=== PATIENT | female | born 1960 | race Caucasian/White ===

== ENCOUNTER 2019-05-04 14:22 | Emergency (ER) | payer OTHER ==
[~2019-05-04] VITALS: Ht 162.6 cm; Wt 81.6 kg
[2019-05-04 14:58] LABS: Basophils # (auto) 0.1 uL; Basophils % (auto) 0.8 % (0.0-2.0); Eosinophils # (auto) 0.4 uL; Eosinophils % (auto) 3.4 % (0.0-7.0); Hematocrit 42.3 % (36.0-46.0); Hemoglobin 14.5 g/dL (12.2-16.2); Lymphocytes # (auto) 4.7 uL; Lymphocytes % (auto) 36.5 % (10.0-50.0); Mean Corpuscular Hemoglobin 32.1 pg (28.0-32.0); Mean Corpuscular Hgb Conc. 34.2 g/dL (32.0-36.0); Mean Corpuscular Volume 93.7 fL (80.0-100.0); Monocytes # (auto) 1.1 uL; Neutrophils # (auto) 6.4 uL; Neutrophils % (auto) 50.3 % (37.0-80.0); Nucleated Red Blood Cells % 0.1 %; Platelet Count (auto) 358 10^3/uL (140-450); Red Blood Cells 4.51 10^6/uL (4.0-5.20); Red Cell Distribution Width 12.9 % (11.8-14.3); White Blood Cell 12.8 10^3/uL (4.4-10.8)
[2019-05-04 15:22] LABS: Urine Bacteria NONE SEEN /hpf (None Seen); Urine Blood Negative /uL (Negative); Urine Specific Gravity 1.006 (1.001-1.035); Urine WBC 9 /hpf (0 - 5)
[2019-05-04 15:23] LABS: Albumin 3.6 g/dL (3.4-5.0); Anion Gap 8 (5-15); Blood Urea Nitrogen 18 mg/dL (7-18); Calcium 9.6 mg/dL (8.5-10.1); Carbon Dioxide 25 mmol/L (21-32); Chloride 106 mmol/L (98-107); Glucose 100 mg/dL (74-106); Magnesium 2.7 mg/dL (1.6-2.6); Potassium 3.9 mmol/L (3.5-5.1); Sodium 139 mmol/L (136-145)
[2019-05-04 15:29] LABS: Alanine Aminotransferase 21 U/L (13-56); Alkaline Phosphatase 99 U/L (45-117); Aspartate Aminotransferase 19 U/L (15-37); BUN/Creatinine Ratio 18.2; Bilirubin, Total 0.3 mg/dL (0.2-1.0); GFR African American 74 mL/min; GFR Non-African American 61 mL/min; Total Protein 7.9 g/dL (6.4-8.2)
[2019-05-04 17:20] LABS: INR 0.93 (0.9-1.15); Partial Thromboplastin Time 24.6 sec (23.64-32.05)
[2019-05-04] MEDS ORDERED: IOHEXOL 350 MG/ML 100ML IJ ONE (17:57)
[2019-05-04] MEDS ORDERED: ACETAMINOPHEN 325 MG TAB PO ONE (20:30)
[2019-05-04] MEDS ORDERED: PANTOPRAZOLE 40 MG TAB PO ONE (20:30)
[2019-05-04 21:30] VITALS: BP 135/81
== END 2019-05-04 21:52 | disposition short-term general hospital (02) ==
LOC: EDBD 14:22 → ER 14:26
DX: R07.89 Other chest pain (principal); I10 Essential (primary) hypertension; Z86.73 Personal history of transient ischemic attack (TIA), and cerebral infarction without residual deficits; Z90.710 Acquired absence of both cervix and uterus; Z88.1 Allergy status to other antibiotic agents; Z88.8 Allergy status to other drugs, medicaments and biological substances
CPT/HCPCS: 36415; 71045; 71260; 80053; 81001; 83735; 83880; 84443; 84484; 85025; 85379; 85610; 85730; 93005; 94761; 99291; Q9967

== ENCOUNTER 2022-02-02 17:53 | Emergency (ER) | payer OTHER ==
[~2022-02-02] VITALS: Ht 167.6 cm; Wt 81.6 kg
[2022-02-02 19:11] LABS: Basophils # (auto) 0.2 10 ^3/uL (0-0.2); Basophils % (auto) 1.1 % (0.0-2.0); Eosinophils # (auto) 0.4 10 ^3/uL (0-0.8); Hematocrit 38.6 % (36.0-46.0); Lymphocytes # (auto) 3.6 10 ^3/uL (0.4-5.4); Lymphocytes % (auto) 25.6 % (10.0-50.0); Mean Corpuscular Hemoglobin 31.7 pg (28.0-32.0); Mean Corpuscular Hgb Conc. 33.8 g/dL (32.0-36.0); Monocytes # (auto) 1.2 10 ^3/uL (0-1.3); Monocytes % (auto) 8.3 % (0.0-12.0); Neutrophils # (auto) 8.8 10 ^3/uL (1.6-8.6); Nucleated Red Blood Cells % 0.1 %; Red Cell Distribution Width 13.4 % (11.8-14.3); White Blood Cell 14.2 10^3/uL (4.4-10.8)
[2022-02-02 19:30] LABS: Albumin 3.3 g/dL (3.4-5.0); Calcium 8.9 mg/dL (8.5-10.1); Potassium 3.8 mmol/L (3.5-5.1)
[2022-02-02 19:34] LABS: BUN/Creatinine Ratio 17.1; Bilirubin, Total 0.3 mg/dL (0.2-1.0); Total Protein 6.9 g/dL (6.4-8.2)
[2022-02-02 20:50] VITALS: BP 145/79
[2022-02-02 20:56] LABS: Urine Bacteria NONE SEEN /hpf (None Seen); Urine Blood Negative /uL (Negative); Urine Mucus FEW (None Seen); Urine WBC 1 /hpf (0 - 5)
== END 2022-02-02 20:50 | disposition home or self-care (01) ==
LOC: EDBD 17:53 → ER 17:53
DX: R55 Syncope and collapse (principal); J45.909 Unspecified asthma, uncomplicated; K21.9 Gastro-esophageal reflux disease without esophagitis; I10 Essential (primary) hypertension; Z90.710 Acquired absence of both cervix and uterus; Z86.73 Personal history of transient ischemic attack (TIA), and cerebral infarction without residual deficits; Z88.6 Allergy status to analgesic agent
CPT/HCPCS: 36415; 80053; 81001; 84484; 85025; 93005; 99285; J7030

== ENCOUNTER → 2022-11-18 | Emergency (ER) | payer OTHER ==
[~2022-11-18] VITALS: Ht 165.1 cm; Wt 68.0 kg
[2022-11-18 00:20] LABS: Basophils # (auto) 0.1 10 ^3/uL (0-0.2); Basophils % (auto) 0.8 % (0.0-2.0); Eosinophils # (auto) 0.5 10 ^3/uL (0-0.8); Eosinophils % (auto) 4.4 % (0.0-7.0); Hematocrit 40.4 % (36.0-46.0); Hemoglobin 13.6 g/dL (12.2-16.2); Mean Corpuscular Hemoglobin 31.2 pg (28.0-32.0); Mean Corpuscular Hgb Conc. 33.5 g/dL (32.0-36.0); Monocytes % (auto) 8.5 % (0.0-12.0); Neutrophils # (auto) 6.5 10 ^3/uL (1.6-8.6); Neutrophils % (auto) 53.3 % (37.0-80.0); Nucleated Red Blood Cells % 0.1 %; Red Blood Cells 4.35 10^6/uL (4.0-5.20); Red Cell Distribution Width 13.2 % (11.8-14.3); White Blood Cell 12.2 10^3/uL (4.4-10.8)
[2022-11-18 00:37] LABS: Albumin 3.5 g/dL (3.4-5.0); BUN/Creatinine Ratio 22.7; Calcium 9.5 mg/dL (8.5-10.1); Potassium 4.3 mmol/L (3.5-5.1)
[2022-11-18 00:40] LABS: Bilirubin, Total 0.3 mg/dL (0.2-1.0); Total Protein 7.7 g/dL (6.4-8.2)
[2022-11-18 02:11] LABS: Urine Bacteria FEW /hpf (None Seen); Urine Blood Negative /uL (Negative); Urine Specific Gravity 1.006 (1.001-1.035); Urine WBC 26 /hpf (0 - 5); Urine WBC Clumps PRESENT /hpf (None Seen)
[2022-11-18 03:00] VITALS: BP 131/71
== END | disposition home or self-care (01) ==
LOC: EDUNIT# 11-17 23:56 → ER 00:04 → EDBD 00:04
DX: R07.89 Other chest pain (principal); I10 Essential (primary) hypertension; J45.909 Unspecified asthma, uncomplicated; K21.9 Gastro-esophageal reflux disease without esophagitis; Z90.710 Acquired absence of both cervix and uterus; Z86.73 Personal history of transient ischemic attack (TIA), and cerebral infarction without residual deficits; Z88.1 Allergy status to other antibiotic agents; Z88.6 Allergy status to analgesic agent; Z88.8 Allergy status to other drugs, medicaments and biological substances
CPT/HCPCS: 36415; 71045; 80053; 81001; 84484; 85025; 93005

== ENCOUNTER 2023-10-15 14:50 | Emergency (ER) | payer OTHER ==
[~2023-10-15] VITALS: Ht 167.6 cm; Wt 81.8 kg
[2023-10-15] MEDS ORDERED: SODIUM CHLORIDE 0.9% 1,000 ML IV ONE (15:15)
[2023-10-15] MEDS ORDERED: NITROGLYCERIN 0.4 MG SL TAB SL ONE (15:30)
[2023-10-15] MEDS ORDERED: ASPirin 325 MG TAB PO ONE (15:30)
[2023-10-15 16:04] LABS: Basophils # (auto) 0.1 10 ^3/uL (0-0.2); Basophils % (auto) 0.8 % (0.0-2.0); Eosinophils # (auto) 0.5 10 ^3/uL (0-0.8); Eosinophils % (auto) 5.4 % (0.0-7.0); Hematocrit 40.2 % (36.0-46.0); Hemoglobin 13.6 g/dL (12.2-16.2); Lymphocytes % (auto) 30.3 % (10.0-50.0); Mean Corpuscular Hemoglobin 31.7 pg (28.0-32.0); Mean Corpuscular Hgb Conc. 33.9 g/dL (32.0-36.0); Mean Corpuscular Volume 93.8 fL (80.0-100.0); Monocytes % (auto) 9.8 % (0.0-12.0); Neutrophils # (auto) 5.3 10 ^3/uL (1.6-8.6); Neutrophils % (auto) 53.7 % (37.0-80.0); Red Blood Cells 4.29 10^6/uL (4.0-5.20); Red Cell Distribution Width 12.6 % (11.8-14.3); White Blood Cell 9.9 10^3/uL (4.4-10.8)
[2023-10-15 16:20] LABS: Alanine Aminotransferase 16 U/L (7-40); Albumin 4.3 g/dL (3.2-4.8); Alkaline Phosphatase 92 U/L (46-116); Anion Gap 11 (5-15); Aspartate Aminotransferase 17 U/L (13-40); BUN/Creatinine Ratio 22.4 (10.0-20.0); Bilirubin, Total 0.3 mg/dL (0.2-1.0); Blood Urea Nitrogen 17 mg/dL (9-23); Calcium 9.5 mg/dL (8.7-10.4); Carbon Dioxide 24 mmol/L (20-30); Chloride 103 mmol/L (98-107); Glucose 103 mg/dL (74-106); Potassium 3.8 mmol/L (3.5-5.1); Sodium 138 mmol/L (136-145)
[2023-10-15 16:43] LABS: Urine Bacteria NONE SEEN /hpf (None Seen); Urine Blood Negative /uL (Negative); Urine Clarity Clear (Clear); Urine Color Colorless (Yellow); Urine Protein, UAD Negative (Negative); Urine Specific Gravity 1.016 (1.001-1.035); Urine Urobilinogen Normal (Negative); Urine WBC 5 /hpf (0 - 5); Urine pH 7.5 (5.0-8.0)
[2023-10-15 17:00] VITALS: TEMP 97.8
[2023-10-15] MEDS ORDERED: cefTRIAXone 1GM/50ML D5W 50 ML IV ONE (17:15)
[2023-10-15] MEDS ORDERED: IOHEXOL 350 MG/ML 100ML IJ ONE (17:19)
[2023-10-15] MEDS ORDERED: NITR-87 PO (17:37)
[2023-10-15 18:00] VITALS: BP 135/75; PULSE 73; RESP 15; O2SAT 97
== END 2023-10-15 19:40 | disposition home or self-care (01) ==
LOC: ER 14:50 → EDBD 14:50 → ER 19:40
DX: R07.89 Other chest pain (principal); N39.0 Urinary tract infection, site not specified; I10 Essential (primary) hypertension; E78.5 Hyperlipidemia, unspecified; K21.9 Gastro-esophageal reflux disease without esophagitis; J45.909 Unspecified asthma, uncomplicated; Z86.73 Personal history of transient ischemic attack (TIA), and cerebral infarction without residual deficits; Z90.49 Acquired absence of other specified parts of digestive tract; Z90.710 Acquired absence of both cervix and uterus; Z88.1 Allergy status to other antibiotic agents; Z88.8 Allergy status to other drugs, medicaments and biological substances
CPT/HCPCS: 36415; 71045; 71275; 80053; 81001; 84443; 84484; 85025; 85379; 93005; 96361; 96365; 99285; J0696; Q9967

== ENCOUNTER 2024-08-28 12:06 | Emergency (ER) | payer OTHER ==
[~2024-08-28] VITALS: Ht 162.6 cm; Wt 70.0 kg
[~2024-08-28 12:06] MED LIST: NITR-87 PO
--- NOTE | 2024-08-28 12:16 | ED.PDOC ---
HPI (NEURO) HPI Comments HPI: Poor Historian. 64-year-old female brought in by ambulance for a near syncopal episode. Patient was standing and she felt very lightheaded so she sat down and almost blacked out. She has associated mild headache. She started taking her Eliquis today. Denies any fall or trauma or injury. Denies any focal neurological deficits. No other associated symptoms. Vitals on scene: respiratory rate of 18, SpO2 of 99%RA, pulse rate of 78, blood pressure of 168/88, and a blood glucose of 99 Vitals on arrival: respiratory rate of 18, SpO2 of 99%RA, pulse rate of 79, blood pressure of 150/73 PMHx: HTN, TIA, LLE DVT, sciatica PSHx: denies REVIEW OF SYSTEMS: CONSTITUTIONAL: Denies acute: fever, diaphoresis, chills, generalized weakness. HEAD: Denies acute: photophobia Eyes: Denies acute: Double vision, vision loss, eye pain, eye discharge. EARS: Denies acute: tinnitus, hearing loss, ear discharge, ear pain, THROAT: Denies acute: sore throat, swelling, difficulty swallowing , pain with swallowing, change in voice. NECK: Denies acute: neck pain, neck swelling, stiff neck. HEART: Denies acute : chest pain, palpitations, LUNGS: Denies acute: SOB, wheezing, cough, hemoptysis ABDOMEN: Denies acute: abdominal pain, Nausea, Vomiting, diarrhea, melena , hematemesis, hematochezia SKIN: Denies acute: rash, redness, lesions, itchiness. EXTREMITIES: Denies acute: calf pain, numbness, tingling, weakness, denies pain in extremity. Denies acute: Low back pain. Neuro: Denies acute: focal neurological deficit, motor or sensory focal neurological deficit, tremors, seizure like activity, confusion, change in mental status, loss of bowel or bladder function, cauda equina like symptoms. : Denies acute: dysuria, hematuria, flank pain, increase in urinary frequency. PSYCH: Denies acute: hallucination, suicidal ideation, homicidal ideation. FEMALE: Denies acute: abnormal vaginal bleeding, foul odor, unusual discharge. PHYSICAL EXAM: General: no acute distress, awake and alert. Head: normocephalic, atraumatic. Neck: supple, trachea is midline, no swelling. Throat: Normal phonation. Eyes:, no erythema, no purulent discharge, no proptosis, no icterus. Heart: regular rate, regular rhythm, no significant murmur appreciated. Lungs: no apparent respiratory distress, Able to speak in full sentences. No wheezing, no rhonchi, no crackles. No stridors Clear to auscultation bilaterally. Abdomen: non tender to palpation, non distended, soft, no guarding, no rebound, + bowel sounds. Neuro: Awake, Alert, oriented to name, self, situation, follows commands GCS=15. Speech is normal. Skin: no petechia, no purpura, no cyanosis, non-pale, not jaundice. Lower extremities: --no - Pitting edema no deformity, no focal swelling, no calf TTP. Makes eye contact. moves all four extremities. Face: no apparent facial droop. Ambulating in the ED independently. PERRLA, EOM-I CN 2-12 are grossly intact, No nystagmus. No nuchal rigidity, Kernig's sign, Brudzinski's sign, no meningeal signs. Time Seen by MD: 12:00 Primary Care Provider: PERRY Reviewed Notes: Nurses Notes, [employer] Notes, Allergies Information Source: Patient, Emergency Med Personnel Was a procedure done? Was a procedure done?: No Differential Diagnosis (SZ) Seizure: N/A General Weakness: Anemia, CVA, Dehydration, Dysrhythmia, Electrolyte imbalance, Encephalopathy, Guillain-[place], Hypoglycemia, Hypotension, Hypovolemia, Labyrinthitis, Meniere's disease, Myasthenia gravis, Myocardial infarction, Pulmonary embolus, Renal failure, TIA, VBI, Vertigo: central, Vertigo: peripheral, Vestibular neuronitis Headache: Cluster, Migraine, Epidural Hemorrhage, Intracerebral Hemorrhage, Subarachnoid Hemorrhage, Subdural Hemorrhage, Mass Lesion, Meningitis, Post-Traumatic, Sinusitis X-Ray, Labs, Meds, VS Vital Signs Date Time Temp Pulse Resp B/P (MAP) Pulse Ox O2 Delivery O2 Flow Rate FiO2 08/28/24 18:00 89 16 132/69 (90) 94 08/28/24 16:00 80 16 138/65 (89) 94 08/28/24 14:00 85 16 142/60 (87) 94 08/28/24 13:00 72 16 94 Room Air* 0 21 08/28/24 12:38 98.2 79 18 150/73 (98) 99 08/28/24 12:30 98.2 72 16 144/66 (92) 94 98.2 08/28/24 12:27 80 Lab Test 08/28/24 16:11 08/28/24 13:58 08/28/24 13:05 08/28/24 12:43 Range/Units Troponin I High Sensitivity < 3 L < 3 L < 3 L </=34 ng/L White Blood Count 15.5 H 4.4-10.8 10^3/uL Red Blood Count 4.02 4.0-5.20 10^6/uL Hemoglobin 13.5 12.2-16.2 g/dL Hematocrit 39.8 36.0-46.0 % Mean Corpuscular Volume 98.9 80.0-100.0 fL Mean Corpuscular Hemoglobin 33.5 H 28.0-32.0 pg Mean Corpuscular Hemoglobin Concent 33.8 32.0-36.0 g/dL Red Cell Distribution Width 12.9 11.8-14.3 % Platelet Count 381 140-450 10^3/uL Mean Platelet Volume 7.4 6.9-10.8 fL Neutrophils (%) (Auto) 68.9 37.0-80.0 % Lymphocytes (%) (Auto) 22.7 10.0-50.0 % Monocytes (%) (Auto) 7.5 0.0-12.0 % Eosinophils (%) (Auto) 0.5 0.0-7.0 % Basophils (%) (Auto) 0.4 0.0-2.0 % Neutrophils # (Auto) 10.7 H 1.6-8.6 10 ^3/uL Lymphocytes # (Auto) 3.5 0.4-5.4 10 ^3/uL Monocytes # (Auto) 1.2 0-1.3 10 ^3/uL Eosinophils # (Auto) 0.1 0-0.8 10 ^3/uL Basophils # (Auto) 0.1 0-0.2 10 ^3/uL Nucleated Red Blood Cells 0.0 % Sodium Level 140 136-145 mmol/L Potassium Level 4.0 3.5-5.1 mmol/L Chloride Level 105 98-107 mmol/L Carbon Dioxide Level 27 20-31 mmol/L Anion Gap 8 5-15 Blood Urea Nitrogen 15 9-23 mg/dL Creatinine 0.83 0.550-1.02 mg/dL Glomerular Filtration Rate Calc 79 >90 mL/min BUN/Creatinine Ratio 18.1 10.0-20.0 Serum Glucose 94 74-106 mg/dL Lactic Acid Level 0.9 0.4-2.0 mmol/L Calcium Level 10.3 8.7-10.4 mg/dL Magnesium Level 2.4 1.6-2.6 mg/dL Total Bilirubin 0.5 0.2-1.0 mg/dL Aspartate Amino Transferase (AST) 12 L 13-40 U/L Alanine Aminotransferase (ALT) 28 7-40 U/L Alkaline Phosphatase 67 46-116 U/L Total Protein 7.1 5.7-8.2 g/dL Albumin 4.4 3.2-4.8 g/dL Urine Color Colorless Yellow Urine Clarity Clear Clear Urine pH 5.0 5.0-9.0 Urine Specific [place] 1.004 1.001-1.035 Urine Protein Negative Negative Urine Ketones Negative Negative Urine Blood Negative Negative /uL Urine Nitrite Negative Negative Urine Bilirubin Negative Negative Urine Urobilinogen Normal Negative mg/dL Urine Leukocyte Esterase Negative Negative /uL Urine RBC 1 0 - 4 /hpf Urine WBC <1 0 - 5 /hpf Urine Squamous Epithelial Cells Few <5 /hpf Urine Bacteria Few H None Seen /hpf Urine Glucose Normal Normal mg/dL Current Medications Medications (Trade) Dose Ordered Sig/Lucinda Route Start Time Stop Time Status Last Admin Sodium Chloride 1,000 ml @ 1,000 mls/hr Q1H ONCE IV 08/28/24 19:00 08/28/24 19:59 DC 08/28/24 19:00 [place] [address] Ph: [phone] DIAGNOSTIC IMAGING Diagnostic Imaging Report : [id number] Signed PATIENT: LORETTA HERNANDEZ ACCT: [id number] UNIT: [id number] : 1960 LOC: ER ROOM / BED: / AGE / SEX: 64 / F ADM STATUS: REG ER SERVICE 1212 ORDERING PHYSICIAN: BELEN GLASGOW DO PROCEDURE(s): HWOCT - HEAD WITHOUT CONTRAST REASON: near syncope ORDER NUMBER(s): [id number], ACCESSION NUMBER(s): [id number] EXAM: CT HEAD WITHOUT CONTRAST HISTORY: near syncope COMPARISON: None TECHNIQUE: Axial images of the head were obtained and reformatted in coronal and sagittal planes. All CT scans at this medical facility are performed using dose modulation techniques as appropriate to a performed exam including the following: Automated exposure control was utilized; adjustment of the MA and/or KV according to patient size; and use of iterative reconstruction technique. CT Dose: CTDI volume is 55.62 mGy. Dose-length product is 1096.05 mGy*cm FINDINGS: There is no evidence of acute intracranial hemorrhage, mass, mass effect midline shift. There is no hydrocephalus or extra-axial fluid collection. Mckinnon-white matter differentiation is maintained.. The visualized paranasal sinuses and mastoid air cells are clear. The calvarium is intact. IMPRESSION: 1. No acute intracranial process. HS:Y ATED BY: IFEANYI GRAVES MD DICTATED DATE/TIME: 08/28/241319 SIGNED BY: IFEANYI GRAVES MD SIGNED DATE/TIME: 08/28/241319 CC: [place] [id number] Ph: [phone] DIAGNOSTIC IMAGING Diagnostic Imaging Report : [id number] Signed PATIENT: LORETTA HERNANDEZ ACCT: [id number] UNIT: [id number] : 1960 LOC: ER ROOM / BED: / AGE / SEX: 64 / F ADM STATUS: REG ER SERVICE 1212 ORDERING PHYSICIAN: BELEN GLASGOW DO PROCEDURE(s): CXRP - CHEST PORTABLE REASON: near syncope ORDER NUMBER(s): [id number], ACCESSION NUMBER(s): [id number] CHEST RADIOGRAPH Indication:near syncope Technique: Single frontal view of the chest was obtained Comparison: XY CHEST PORTABLE on DOS: 10/15/23, CHEST PORTABLE on DOS: 11/18/22, CXRP on DOS: 11/18/22 FINDINGS: Lines and Tubes: None Lungs: No focal consolidation. Pleura: No effusion. No pneumothorax. Cardiomediastinal contours: Unremarkable Bones: No acute osseous abnormality. IMPRESSION: No acute cardiopulmonary disease. ATED BY: ROSALVA FARRELL DO DICTATED DATE/TIME: 08/28/24 1303 SIGNED BY: ROSALVA FARRELL DO SIGNED DATE/TIME: 08/28/24 1303 CC: Time of 1ST Reevaluation: 12:00 Reevaluation 1ST: Unchanged Time of 2ND Reevaluation: 15:58 (The case was discussed with the admitting team (HPI, physical exam, labs and diagnostic tests that were available at the time of disposition, ED course, treatment plan) on the phone. They agreed to come and evaluate the patient and make the appropriate disposition. Dr. He.) Patient Education/Counseling: Diagnosis, Treatment Family Education/Counseling: No Family Present Comments Orthostatics were unremarkable. Patient presented with the above HPI.---syncope---workup was initiated. patient was found with the above mentioned diagnosis. Patient was given: Fluids and [place]. Patient ED course and VS have been stabilized. Patient has been reassessed in the ED and remained in a stable condition. Pertinent incidental findings were discussed with the patient and/or family. Patient/family voices understanding and is agreeable with plan. Patient has been observed in the ED adequate length of time to insure improvement/stability. patient was admitted to the medicine team for further evaluation and treatment of their presentation. However later I was made aware that the hospitalist given evaluated the patient and discharge the patient home. Please see their consultation was disposition instructions. All the reports of any imaging studies that were ordered by myself were reviewed by myself. Departure 1 Departure Time of Disposition: 14:58 Impression: Primary Impression: Syncope Additional Impressions: Headache Leukocytosis Disposition: ADMITTED INPATIENT Admit to: Tele Condition: Guarded Discharged With: Self Critical Care Note Critical Care Time?: No I personally scribed for BELEN GLASGOW DO ([email or web address]) on 08/28/24 at 12:16. Electronically submitted by Jae Chapa ([email or web address]). I personally scribed for BELEN GLASGOW DO ([email or web address]) on 08/28/24 at 12:34. Electronically submitted by Jae Chapa ([email or web address]). I personally scribed for BELEN GLASGOW DO ([email or web address]) on 08/28/24 at 16:21. Electronically submitted by Jae Chapa ([email or web address]). I personally scribed for BELEN GLASGOW DO ([email or web address]) on 08/28/24 at 21:36. Electronically submitted by Jae Chapa ([email or web address]). BELEN GLASGOW DO Aug 28, 2024 12:16
[2024-08-28 12:30] VITALS: TEMP 98.2
[2024-08-28 12:54] LABS: Urine Bacteria FEW /hpf (None Seen); Urine Blood Negative /uL (Negative); Urine Clarity Clear (Clear); Urine Color Colorless (Yellow); Urine Protein, UAD Negative (Negative); Urine Specific Gravity 1.004 (1.001-1.035); Urine Urobilinogen Normal (Negative); Urine WBC <1 /hpf (0 - 5)
[2024-08-28 13:00] VITALS: PULSE 72; RESP 16; O2SAT 94
--- NOTE | 2024-08-28 13:05 | DVH ---
CHEST RADIOGRAPH Indication:near syncope Technique: Single frontal view of the chest was obtained Comparison: XY CHEST PORTABLE on DOS: 10/15/23, CHEST PORTABLE on DOS: 11/18/22, CXRP on DOS: 11/18/22 FINDINGS: Lines and Tubes: None Lungs: No focal consolidation. Pleura: No effusion. No pneumothorax. Cardiomediastinal contours: Unremarkable Bones: No acute osseous abnormality. IMPRESSION: No acute cardiopulmonary disease.
--- NOTE | 2024-08-28 13:21 | DVH ---
EXAM: CT HEAD WITHOUT CONTRAST HISTORY: near syncope COMPARISON: None TECHNIQUE: Axial images of the head were obtained and reformatted in coronal and sagittal planes. All CT scans at this medical facility are performed using dose modulation techniques as appropriate t o a performed exam including the following: Automated exposure control was utilized; adjustment of th e MA and/or KV according to patient size; and use of iterative reconstruction technique. CT Dose: CTDI volume is 55.62 mGy. Dose-length product is 1096.05 mGy*cm FINDINGS: There is no evidence of acute intracranial hemorrhage, mass, mass effect midline shift. There is no h ydrocephalus or extra-axial fluid collection. Mckinnon-white matter differentiation is maintained.. The visualized paranasal sinuses and mastoid air cells are clear. The calvarium is intact. IMPRESSION: 1. No acute intracranial process. HS:Y
[2024-08-28 13:22] LABS: Basophils # (auto) 0.1 10 ^3/uL (0-0.2); Basophils % (auto) 0.4 % (0.0-2.0); Eosinophils # (auto) 0.1 10 ^3/uL (0-0.8); Eosinophils % (auto) 0.5 % (0.0-7.0); Hematocrit 39.8 % (36.0-46.0); Hemoglobin 13.5 g/dL (12.2-16.2); Lymphocytes # (auto) 3.5 10 ^3/uL (0.4-5.4); Lymphocytes % (auto) 22.7 % (10.0-50.0); Mean Corpuscular Hemoglobin 33.5 pg (28.0-32.0); Mean Corpuscular Hgb Conc. 33.8 g/dL (32.0-36.0); Mean Corpuscular Volume 98.9 fL (80.0-100.0); Monocytes # (auto) 1.2 10 ^3/uL (0-1.3); Monocytes % (auto) 7.5 % (0.0-12.0); Neutrophils # (auto) 10.7 10 ^3/uL (1.6-8.6); Neutrophils % (auto) 68.9 % (37.0-80.0); Platelet Count (auto) 381 10^3/uL (140-450); Red Blood Cells 4.02 10^6/uL (4.0-5.20); Red Cell Distribution Width 12.9 % (11.8-14.3); White Blood Cell 15.5 10^3/uL (4.4-10.8)
[2024-08-28 13:46] LABS: Alanine Aminotransferase 28 U/L (7-40); Albumin 4.4 g/dL (3.2-4.8); Alkaline Phosphatase 67 U/L (46-116); Anion Gap 8 (5-15); Aspartate Aminotransferase 12 U/L (13-40); BUN/Creatinine Ratio 18.1 (10.0-20.0); Blood Urea Nitrogen 15 mg/dL (9-23); Calcium 10.3 mg/dL (8.7-10.4); Carbon Dioxide 27 mmol/L (20-31); Chloride 105 mmol/L (98-107); Glucose 94 mg/dL (74-106); Magnesium 2.4 mg/dL (1.6-2.6); Sodium 140 mmol/L (136-145)
[2024-08-28 13:47] LABS: Bilirubin, Total 0.5 mg/dL (0.2-1.0); Total Protein 7.1 g/dL (5.7-8.2)
[2024-08-28] MEDS: HYDROcodone-ACET 5/325MG TAB PO ONE (15:00)
[2024-08-28] MEDS: SODIUM CHLORIDE 0.9% 1,000 ML IV ONE ×2 (16:00→19:00)
[2024-08-28 18:00] VITALS: BP 132/69; PULSE 89; RESP 16; O2SAT 94
--- NOTE | 2024-08-28 18:48 | ECG ---
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
[2024-08-28] MEDS: ACETAMINOPHEN 325 MG TAB PO ONE (20:19)
--- NOTE | 2024-08-28 21:01 | DVHINCON2 ---
Date of service: Aug 28, 2024 Referring Physician Temi Reason for Consultation Syncope History of Present Illness This is a 64 year old female with a PMH of HTN, TIA, LLE DVT, sciatica who was brought in by EMS with complaints of near syncopal episode. Patient was standing and she felt very lightheaded so she sat down and almost blacked out. She has associated mild headache. She started taking her Eliquis today. Denies any fall or trauma or injury. Denies any focal neurological deficits. Chest x-ray shows NAD. CT head shows no acute intracranial process. WBC 15.5. Troponin is negative x3. I am asked to consult on this patient. Allergies: Coded Allergies: Atropine (Verified Allergy, Unknown, 05/04/19) Cefaclor (Verified Allergy, Unknown, 05/04/19) Hyoscyamine (Verified Allergy, Unknown, 05/04/19) Nabumetone (Verified Allergy, Unknown, 08/28/24) Nitrofurantoin (Verified Allergy, Unknown, 08/28/24) Phenobarbital (Verified Allergy, Unknown, 05/04/19) Scopolamine (Verified Allergy, Unknown, 05/04/19) Tetracycline (Verified Allergy, Unknown, 05/04/19) Uncoded Allergies: ADHESIVE TAPE (Allergy, Mild, ITCHING , 08/28/24) Home Meds Active Scripts Nitrofurantoin Monohydrate Mac (Macrobid) 100 Mg Cap, 100 MG PO BID for 5 Days, #10 CAP Prov:RODRÍGUEZ VASQUEZ MD 10/15/23 Review of Systems Denies acute: fever, diaphoresis, chills, generalized weakness. HEAD: Denies acute: photophobia Eyes: Denies acute: Double vision, vision loss, eye pain, eye discharge. EARS: Denies acute: tinnitus, hearing loss, ear discharge, ear pain, THROAT: Denies acute: sore throat, swelling, difficulty swallowing , pain with swallowing, change in voice. NECK: Denies acute: neck pain, neck swelling, stiff neck. HEART: Denies acute : chest pain, palpitations, LUNGS: Denies acute: SOB, wheezing, cough, hemoptysis ABDOMEN: Denies acute: abdominal pain, Nausea, Vomiting, diarrhea, melena , hematemesis, hematochezia SKIN: Denies acute: rash, redness, lesions, itchiness. EXTREMITIES: Denies acute: calf pain, numbness, tingling, weakness, denies pain in extremity. Denies acute: Low back pain. Neuro: Denies acute: focal neurological deficit, motor or sensory focal neurological deficit, tremors, seizure like activity, confusion, change in mental status, loss of bowel or bladder function, cauda equina like symptoms. : Denies acute: dysuria, hematuria, flank pain, increase in urinary frequency. PSYCH: Denies acute: hallucination, suicidal ideation, homicidal ideation. FEMALE: Denies acute: abnormal vaginal bleeding, foul odor, unusual discharge. Vital Signs Vital Signs Date Time Temp Pulse Resp B/P (MAP) Pulse Ox O2 Delivery O2 Flow Rate FiO2 08/28/24 18:00 89 16 132/69 (90) 94 08/28/24 13:00 Room Air* 0 21 08/28/24 12:38 98.2 Physical Exam GENERAL: Awake, alert, oriented. LUNGS: Clear. CARDIOVASCULAR: Heart sounds are good. ABDOMEN: Soft. Labs/Diagnostic Data Labs Test 08/28/24 16:11 08/28/24 13:05 08/28/24 12:43 Range/Units Troponin I High Sensitivity < 3 L </=34 ng/L White Blood Count 15.5 H 4.4-10.8 10^3/uL Red Blood Count 4.02 4.0-5.20 10^6/uL Hemoglobin 13.5 12.2-16.2 g/dL Hematocrit 39.8 36.0-46.0 % Mean Corpuscular Volume 98.9 80.0-100.0 fL Mean Corpuscular Hemoglobin 33.5 H 28.0-32.0 pg Mean Corpuscular Hemoglobin Concent 33.8 32.0-36.0 g/dL Red Cell Distribution Width 12.9 11.8-14.3 % Platelet Count 381 140-450 10^3/uL Mean Platelet Volume 7.4 6.9-10.8 fL Neutrophils (%) (Auto) 68.9 37.0-80.0 % Lymphocytes (%) (Auto) 22.7 10.0-50.0 % Monocytes (%) (Auto) 7.5 0.0-12.0 % Eosinophils (%) (Auto) 0.5 0.0-7.0 % Basophils (%) (Auto) 0.4 0.0-2.0 % Neutrophils # (Auto) 10.7 H 1.6-8.6 10 ^3/uL Lymphocytes # (Auto) 3.5 0.4-5.4 10 ^3/uL Monocytes # (Auto) 1.2 0-1.3 10 ^3/uL Eosinophils # (Auto) 0.1 0-0.8 10 ^3/uL Basophils # (Auto) 0.1 0-0.2 10 ^3/uL Nucleated Red Blood Cells 0.0 % Sodium Level 140 136-145 mmol/L Potassium Level 4.0 3.5-5.1 mmol/L Chloride Level 105 98-107 mmol/L Carbon Dioxide Level 27 20-31 mmol/L Anion Gap 8 5-15 Blood Urea Nitrogen 15 9-23 mg/dL Creatinine 0.83 0.550-1.02 mg/dL Glomerular Filtration Rate Calc 79 >90 mL/min BUN/Creatinine Ratio 18.1 10.0-20.0 Serum Glucose 94 74-106 mg/dL Lactic Acid Level 0.9 0.4-2.0 mmol/L Calcium Level 10.3 8.7-10.4 mg/dL Magnesium Level 2.4 1.6-2.6 mg/dL Total Bilirubin 0.5 0.2-1.0 mg/dL Aspartate Amino Transferase (AST) 12 L 13-40 U/L Alanine Aminotransferase (ALT) 28 7-40 U/L Alkaline Phosphatase 67 46-116 U/L Total Protein 7.1 5.7-8.2 g/dL Albumin 4.4 3.2-4.8 g/dL Urine Color Colorless Yellow Urine Clarity Clear Clear Urine pH 5.0 5.0-9.0 Urine Specific [place] 1.004 1.001-1.035 Urine Protein Negative Negative Urine Ketones Negative Negative Urine Blood Negative Negative /uL Urine Nitrite Negative Negative Urine Bilirubin Negative Negative Urine Urobilinogen Normal Negative mg/dL Urine Leukocyte Esterase Negative Negative /uL Urine RBC 1 0 - 4 /hpf Urine WBC <1 0 - 5 /hpf Urine Squamous Epithelial Cells Few <5 /hpf Urine Bacteria Few H None Seen /hpf Urine Glucose Normal Normal mg/dL Assessment Syncope. Headache. Loss of consciousness. Plan/Recommendation Patient is cardiac stable for discharge. Patient advised for outpatient cardiology follow up. Plan discussed with: Patient GENA AZAR MD Aug 28, 2024 21:01
--- NOTE | 2024-09-07 06:00 | DVHINCON2 ---
DATE OF CONSULTATION: 08/28/2024 This is a late note entry for dated 08/28/2024. CHIEF COMPLAINT: Coming in for lightheaded. HISTORY OF PRESENT ILLNESS: This is a 64-year-old female who has a significant past medical history for essential hypertension, asthma, left leg DVT, who presented to the Emergency Room after having a feeling of not wellness and lightheaded that happened this past evening. The patient apparently was at home. She felt a little nauseous, a little bit of a heart racing while sitting on the couch and talking to her friend. The patient felt that her vision was also becoming tunneled vision as well as she was going to pass out, but the patient never passed out or lost consciousness or lost body tone. The patient says this was a very brief incident and her symptoms resolved within a few seconds. The patient ever since then has not had any recurrence of the symptoms. The patient apparently at around 9:00 a.m. this morning, she was at home, sitting on her couch, talking to her friend when she all of a sudden felt lightheadedness. The patient apparently was on her phone talking to her friend when she all of a sudden had symptoms of palpitations, feeling nausea as well as her vision kind of becoming tunneled vision. The patient was able to reach her couch and sit down. The patient had never lost consciousness or lost any muscle tone. The patient says her symptoms lasted for about less than 20 seconds and her symptoms resolved. The patient had no further recurrences. The patient denies any head trauma of any sort. The patient says that she has off and on diarrhea and has had some loose stools recently. The patient denies any vomiting, any bloody or tarry stools, any shortness of breath or any chest pain symptoms. The patient does see Cardiology on regular basis and has yearly cardiac monitoring and echocardiogram with her primary dermatology physician, Dr. Glass, which she completed also in October of this year and was told that her heart condition seems to be well. The patient otherwise denies any recent sicknesses. Denies any cough or phlegm, any urinary frequency, urgency, burning sensation, any fevers or chills. PAST MEDICAL HISTORY: Left leg DVT, on Eliquis; history of asthma; essential hypertension. PAST SURGICAL HISTORY: Appendectomy history, hysterectomy in 2003 and lumpectomies in 1996 and 2009. SOCIAL HISTORY: No tobacco, no alcohol, no illicit drugs. MEDICATIONS: At home to include bisoprolol and Eliquis. MEDICATION ALLERGIES: ADHESIVE TAPE, NITROFURANTOIN, PHENOBARBITAL, SCOPOLAMINE, TETRACYCLINE, CEFACLOR, HYOSCYAMINE AND ATROPINE. REVIEW OF SYSTEMS: A 10-point review of system was covered with the patient and was negative with exception to what was present in the history of present illness. PHYSICAL EXAMINATION: VITAL SIGNS: Temperature 98.2, pulse rate 72, respiratory rate of 16, blood pressure 144/66, pulse ox about 94% on room air. GENERAL: Seems to be alert and oriented x 4, not in acute distress female, sitting up in her bed. HEENT: Normocephalic, atraumatic. Extraocular muscles intact. Pupils were equally round, react to light and accommodation. Mucous membranes were moist. CARDIOVASCULAR: S1, S2 positive, regular rate and rhythm. No rubs, gallops or murmurs. LUNGS: Seems to be clear to auscultation bilaterally. No wheezing, rhonchi or rales. ABDOMEN: Seems to be soft, nontender, nondistended, positive bowel sounds. No guarding or rebound. EXTREMITIES: There is no lower extremity edema, clubbing or cyanosis. NEUROLOGIC: No focal deficits. Cranial nerves testing 2-12 overall seems to be intact. LABORATORY WORKUP: Showed a white count of 15.5, H and H of 13.5/39.8, platelet count of 381,000, neutrophil 68.9%. Sodium 140, potassium 4.0, chloride 105, carbon dioxide of 27, anion gap of 8, BUN of 15, creatinine 0.83 with lactic acid 0.9, glucose of 94, magnesium 2.4, AST of 12, ALT of 28, alkaline phosphatase of 67. Troponins less than 3 x 3. Urinalysis was negative for nitrites, negative for leukocyte esterase, less than 1 wbc. IMAGING STUDIES: Chest x-ray was completed, shows no acute cardiopulmonary disease process. CT head noncontrast was also completed, shows no acute intracranial pathology. EKG shows sinus rhythm, ventricular rate of 80 without any ischemic changes to include no ST depressions or elevations. DIAGNOSIS: Presyncope. PLAN: The patient was seen in the Emergency Room, full assessment was completed with the patient. The patient did have orthostatic blood pressures completed that were negative. The patient's symptoms seem to be consistent with presyncope given that the patient never lost muscle tone or never lost complete consciousness. The patient had no head trauma. Despite this, full assessment and evaluation was completed. The patient had normal EKG with normal chest x-ray as well as a CT head that was completed by the ER, which was normal. The patient has no findings on her laboratory exam for any electrolyte abnormalities. The patient's urinalysis is negative for infection. The patient, however, was found to have some leukocytosis, The patient says this is a chronic condition that she does follow up with her chair trimmer on yearly basis due to these findings and is nothing to be concerned for any type of infectious etiology. The patient's symptoms again seem to be presyncope in nature. The patient will be arranged to follow up with her primary care provider as well as her primary dermatology physician, Dr. Glass within the next 5-7 days. ____. The patient will be informed to return to Emergency Room in case of any fevers or chills, palpitations or recurrence of dizziness symptoms, shortness of breath, chest pain or any other concerning signs and/or symptoms. The patient's followups will be arranged by [facility] Case Management. Jose Kennedy MD LM/NELSON/YVETTE TID: [id number] RECEIPT: [id number]
== END 2024-08-28 20:29 | disposition home or self-care (01) ==
LOC: EDBD 12:06 → ER 12:06
DX: D72.829 Elevated white blood cell count, unspecified (principal); R55 Syncope and collapse; R51.9 Headache, unspecified; I10 Essential (primary) hypertension; Z86.73 Personal history of transient ischemic attack (TIA), and cerebral infarction without residual deficits; Z86.718 Personal history of other venous thrombosis and embolism
CPT/HCPCS: 36415; 70450; 71045; 80053; 81001; 83605; 83735; 84484; 85025; 93005; 96360; 99285; J7030

== ENCOUNTER 2025-05-29 07:04 | Emergency (ER) | payer OTHER, MEDICAID ==
[~2025-05-29] VITALS: Ht 162.6 cm; Wt 76.2 kg
--- NOTE | 2025-05-29 07:32 | ED.PDOC ---
History of Present Illness HPI Comments HPI: This is a 64 year old female KEEA presenting to the ED with chief complaint of flu-like symptoms. EMS reports patient had started to experiencing a fever of 104F at home last night along with associated symptoms of nausea, vomiting, dizziness, weakness, and left sided chest pain for the past 2 days. Patient relays that she took Tylenol around 12am this morning, EMS reading a temperature of 100F in the ED. EMS states patient has been dealing with a previously diagnosed UTI for the past 3-4 months. EMS notes patient's BP has gone from 157/90 initially to 91/58 upon arrival to the ED. Patient denies any SOB, cough, diarrhea, abdominal pain, chills, or headache. Patient is no longer on anticoagulations. Initial Vitals BP: HR: RR: O2: Temp: Past Medical History: HTN, HLD, TIA, DVT, GERD, Asthma Past Surgical History: Appendectomy, , Hysterectomy Social History: Denies ETOH, smoking, and drug use. Medications: ASA Allergies: Atropine, Hyoscyamine, Nabumetone, Nitrofurantoin, Phenobarbital, Scopolamine, Tetracycline HPI: Poor Historian. REVIEW OF SYSTEMS: CONSTITUTIONAL: Denies acute: diaphoresis, chills, HEAD: Denies acute: headache, photophobia Eyes: Denies acute: Double vision, vision loss, eye pain, eye discharge. EARS: Denies acute: tinnitus, hearing loss, ear discharge, ear pain, THROAT: Denies acute: sore throat, swelling, difficulty swallowing , pain with swallowing, change in voice. NECK: Denies acute: neck pain, neck swelling, stiff neck. HEART: Denies acute : palpitations, LUNGS: Denies acute: SOB, wheezing, cough, hemoptysis ABDOMEN: Denies acute: abdominal pain, diarrhea, melena , hematemesis, hematochezia SKIN: Denies acute: rash, redness, lesions, itchiness. EXTREMITIES: Denies acute: calf pain, numbness, tingling, weakness, denies pain in extremity. Denies acute: Low back pain. Neuro: Denies acute: focal neurological deficit, motor or sensory focal neurological deficit, tremors, seizure like activity, confusion, dizziness, change in mental status, loss of bowel or bladder function, cauda equina like symptoms. : Denies acute: dysuria, hematuria, flank pain, increase in urinary frequency. PSYCH: Denies acute: hallucination, suicidal ideation, homicidal ideation. FEMALE: Denies acute: abnormal vaginal bleeding, foul odor, unusual discharge. PHYSICAL EXAM: General: ---mild to moderate----acute distress, awake and alert. Head: normocephalic, atraumatic. Neck: supple, trachea is midline, no swelling. Throat: Normal phonation. Eyes:, no erythema, no purulent discharge, no proptosis, no icterus. Heart: regular rate, regular rhythm, no significant murmur appreciated. Lungs: no apparent respiratory distress, Able to speak in full sentences. No wheezing, no rhonchi, no crackles. No stridors Clear to auscultation bilaterally. Abdomen: Minimal generalized tender to palpation, non distended, soft, no guarding, no rebound, + bowel sounds. Neuro: Awake, Alert, oriented to name, self, situation, follows commands GCS=15. Speech is normal. Skin: no petechia, no purpura, no cyanosis, non-pale, not jaundice. Lower extremities: --no - Pitting edema no deformity, no focal swelling, no calf TTP. Makes eye contact. moves all four extremities. Face: no apparent facial droop. No nuchal rigidity, Kernig's sign, Brudzinski's sign, no meningeal signs. ED COURSE: DISCLAIMER: This medical document was created using an electronic medical record system with voice recognition software and computerized dictation system. Although this document has been carefully reviewed, there might still be some phonetic and typographical errors. Occasional wrong-word or "sound-alike" substitutions may have occurred due to the inherent limitations of voice recognition software. These areas are purely typographical due to imperfections of the software programs and do not reflect any compromise in the patient's medical care. Please read the chart carefully and recognize, using context, where these substitutions have occurred. Time Seen by MD: 07:29 Primary Care Provider: PERRY Reviewed Notes: Medications, Allergies Allergies: Coded Allergies: Atropine (Verified Allergy, Unknown, 05/04/19) Cefaclor (Verified Allergy, Unknown, 05/04/19) Hyoscyamine (Verified Allergy, Unknown, 05/04/19) Nabumetone (Verified Allergy, Unknown, 08/28/24) Phenobarbital (Verified Allergy, Unknown, 05/04/19) Scopolamine (Verified Allergy, Unknown, 05/04/19) Tetracycline (Verified Allergy, Unknown, 05/04/19) Uncoded Allergies: ADHESIVE TAPE (Allergy, Mild, ITCHING , 08/28/24) Home Meds Active Scripts Levofloxacin Hemihydrate (LEVAQUIN 500 MG) 500 Mg Tab, 1 TAB PO DAILY, #10 TAB Prov:DESHAUN VITALE MD 05/29/25 Nitrofurantoin Monohydrate Mac (Macrobid) 100 Mg Cap, 100 MG PO BID for 5 Days, #10 CAP Prov:RODRÍGUEZ VASQUEZ MD 10/15/23 Information Source: Patient, Emergency Med Personnel Mode of Arrival: EMS Was a procedure done? Was a procedure done?: No Differential Dx Considerations may include: Includes but not limited to thyroid disease, encephalopathy, electrolyte abnormality, sepsis, infection, intracranial pathology, drug adverse effects, arrhythmia, kidney insufficiency, ACS, CVA, malignancy, anemia X-Ray, Labs, Meds, VS Vital Signs Date Time Temp Pulse Resp B/P (MAP) Pulse Ox O2 Delivery O2 Flow Rate FiO2 05/29/25 15:23 98.3 66 13 120/51 (74) 99 98.3 05/29/25 14:00 60 13 120/54 (76) 100 05/29/25 13:05 64 18 98 Nasal Cannula* 2 28 05/29/25 13:00 98.4 64 18 100/41 (60) 98 98.4 05/29/25 12:00 98.6 81 16 107/50 (69) 96 98.6 05/29/25 09:55 100.7 89 12 134/60 (84) 97 100.7 05/29/25 09:28 84 05/29/25 09:00 85 19 97 Room Air* 0 21 05/29/25 08:24 100.0 89 12 91/58 98 100.0 05/29/25 08:16 94 18 97 Room Air 05/29/25 08:16 101.9 94 18 136/43 (74) 97 101.9 Lab Test 05/29/25 11:24 05/29/25 09:05 05/29/25 09:00 05/29/25 08:45 Range/Units Troponin I High Sensitivity 5 3 L </=34 ng/L Influenza Type A Antigen Negative Negative Influenza Type B Antigen Negative Negative SARS-CoV-2 Antigen (Rapid) Negative NEGATIVE Urine Color Light-yellow Yellow Urine Clarity Clear Clear Urine pH 8.5 5.0-9.0 Urine Specific [place] 1.014 1.001-1.035 Urine Protein Negative Negative Urine Ketones 1+ H Negative Urine Blood Negative Negative /uL Urine Nitrite Negative Negative Urine Bilirubin Negative Negative Urine Urobilinogen Normal Negative mg/dL Urine Leukocyte Esterase 1+ Negative /uL Urine RBC 5 0 - 4 /hpf Urine Microscopic WBC 53 H 0-5 /HPF Urine Squamous Epithelial Cells Few <5 /hpf Urine Bacteria None seen None Seen /hpf Urine Glucose Normal Normal mg/dL Test 05/29/25 07:58 Range/Units White Blood Count 12.7 H 4.4-10.8 10^3/uL Red Blood Count 4.37 4.0-5.20 10^6/uL Hemoglobin 14.1 12.2-16.2 g/dL Hematocrit 42.2 36.0-46.0 % Mean Corpuscular Volume 96.7 80.0-100.0 fL Mean Corpuscular Hemoglobin 32.2 H 28.0-32.0 pg Mean Corpuscular Hemoglobin Concent 33.3 32.0-36.0 g/dL Red Cell Distribution Width 13.2 11.8-14.3 % Platelet Count 259 140-450 10^3/uL Mean Platelet Volume 7.5 6.9-10.8 fL Neutrophils (%) (Auto) 86.9 H 37.0-80.0 % Lymphocytes (%) (Auto) 5.3 L 10.0-50.0 % Monocytes (%) (Auto) 5.6 0.0-12.0 % Eosinophils (%) (Auto) 2.0 0.0-7.0 % Basophils (%) (Auto) 0.2 0.0-2.0 % Neutrophils # (Auto) 11.0 H 1.6-8.6 10 ^3/uL Lymphocytes # (Auto) 0.7 0.4-5.4 10 ^3/uL Monocytes # (Auto) 0.7 0-1.3 10 ^3/uL Eosinophils # (Auto) 0.3 0-0.8 10 ^3/uL Basophils # (Auto) 0 0-0.2 10 ^3/uL Nucleated Red Blood Cells 0.1 % Prothrombin Time 10.9 9.3-11.8 sec Prothrombin Time INR 1.03 0.9-1.15 Activated Partial Thromboplast Time 27.5 24.5-34.5 SEC Sodium Level 135 L 136-145 mmol/L Potassium Level 3.9 3.5-5.1 mmol/L Chloride Level 103 98-107 mmol/L Carbon Dioxide Level 22 20-31 mmol/L Anion Gap 10 5-15 Blood Urea Nitrogen < 5 L 9-23 mg/dL Creatinine 0.76 0.550-1.02 mg/dL Glomerular Filtration Rate Calc 88 >90 mL/min BUN/Creatinine Ratio 6.6 L 10.0-20.0 Serum Glucose 88 74-106 mg/dL Lactic Acid Level 1.5 0.4-2.0 mmol/L Calcium Level 9.8 8.7-10.4 mg/dL Total Bilirubin 0.6 0.2-1.0 mg/dL Aspartate Amino Transferase (AST) 44 H 13-40 U/L Alanine Aminotransferase (ALT) 45 H 7-40 U/L Alkaline Phosphatase 78 46-116 U/L Troponin I High Sensitivity 4 </=34 ng/L Total Protein 7.6 5.7-8.2 g/dL Albumin 4.7 3.2-4.8 g/dL Microbiology Date/Time Source Procedure Growth Status 05/29/25 07:58 Blood Blood Culture - Final NO GROWTH AFTER 5 DAYS OF INCUBATION. Complete 05/29/25 07:40 Blood Blood Culture - Final NO GROWTH AFTER 5 DAYS OF INCUBATION. Complete [address] [address] Ph: [phone] DIAGNOSTIC IMAGING Diagnostic Imaging Report : [id number] Signed PATIENT: LORETTA HERNANDEZ ACCT: [id number] UNIT: [id number] : 1960 LOC: ER ROOM / BED: / AGE / SEX: 64 / F ADM STATUS: REG ER SERVICE [id number] ORDERING PHYSICIAN: BELEN GLASGOW DO PROCEDURE(s): CXRP - CHEST PORTABLE REASON: fever/cp ORDER NUMBER(s): [id number], ACCESSION NUMBER(s): [id number] INDICATION: fever/cp TECHNIQUE: Frontal view of the chest. COMPARISON: XY CHEST PORTABLE on DOS: 08/28/24, XY CHEST PORTABLE on DOS: 10/15/23, CHEST PORTABLE on DOS: 11/18/22, CXRP on DOS: 11/18/22 FINDINGS: . The heart and mediastinal contours are grossly unremarkable. There is no evidence of pleural disease. The lungs are clear. The bony structures of the chest are intact without fracture. IMPRESSION: 1. No evidence of acute disease. ATED BY: JOSAFAT NAIR MD DICTATED DATE/TIME: 05/29/25 0758 SIGNED BY: JOSAFAT NAIR MD SIGNED DATE/TIME: 05/29/25 0758 CC: Time of 1ST Reevaluation: 08:28 Reevaluation 1ST: Unchanged Time of 2ND Reevaluation: 12:15 (The case was discussed with the admitting team (HPI, physical exam, labs and diagnostic tests that were available at the time of disposition, ED course, treatment plan) on the phone. They will assume care of this patient from this point forward And make the appropriate disposition. Please see their consultation notes. Dr. Carrasco. ) Patient Education/Counseling: Diagnosis, Treatment Family Education/Counseling: No Family Present Comments MDM: patient presented with the above HPI.---fever/weakness/flu-like symptoms/chest pain cardiac---workup was initiated. patient was found with the above mentioned diagnosis. the following medications were ordered: please refer to order lists of meds and tests obtained by myself Dr. Glasgow. Patient ED course and VS have been stabilized. Patient has been reassessed in the ED and remained in a stable condition. Pertinent incidental findings were discussed with the patient and/or family. Patient/family voices understanding and is agreeable with plan. Patient has been observed in the ED adequate length of time to insure improvement/stability. Escalation of care considered: Consideration of escalation to observation or admission Patient was placed for admission to the medicine team for further evaluation and treatment of their presentation. The hospitalist called me and plans to disc harge the patient with close follow up. Please see their notes and disposition. All the reports of any imaging studies that were ordered by myself were reviewed by myself. Departure 1 Departure Time of Disposition: 08:18 Impression: Primary Impression: Fever Additional Impressions: Chest pain UTI (urinary tract infection) Disposition: 09 ADMITTED INPATIENT Admit to: Tele Condition: Guarded Additional Instructions: Please see discharge instructions per the hospitalist team e-Prescriptions Levofloxacin Hemihydrate (LEVAQUIN 500 MG) 500 Mg Tab 1 TAB PO DAILY, #10 TAB Prov: DESHAUN VITALE MD 05/29/25 Discharged With: Self Critical Care Note Critical Care Time?: Yes (35 min-critical care time only) I personally scribed for BELEN GLASGOW DO ([email or web address]) on 05/29/25 at 07:32. Electronically submitted by Richard Campos ([email or web address]). I personally scribed for BELEN GLASGOW DO ([email or web address]) on 05/29/25 at 08:10. Electronically submitted by Richard Campos ([email or web address]). I personally scribed for BELEN GLASGOW DO ([email or web address]) on 05/29/25 at 10:31. Electronically submitted by Richard Campos ([email or web address]). BELEN GLASGOW DO May 29, 2025 07:32
--- NOTE | 2025-05-29 08:01 | DVH ---
INDICATION: fever/cp TECHNIQUE: Frontal view of the chest. COMPARISON: XY CHEST PORTABLE on DOS: 08/28/24, XY CHEST PORTABLE on DOS: 10/15/23, CHEST PORTABLE on DOS: 11/18/22, CXRP on DOS: 11/18/22 FINDINGS: . The heart and mediastinal contours are grossly unremarkable. There is no evidence of pleural disea se. The lungs are clear. The bony structures of the chest are intact without fracture. IMPRESSION: 1. No evidence of acute disease.
[2025-05-29] MEDS: VANCOMYCIN 1GM/250ML KIT 250 ML IV ONE (08:14)
[2025-05-29 08:20] LABS: Hematocrit 42.2 % (36.0-46.0); Hemoglobin 14.1 g/dL (12.2-16.2); Mean Corpuscular Hemoglobin 32.2 pg (28.0-32.0); Mean Corpuscular Volume 96.7 fL (80.0-100.0); Nucleated Red Blood Cells % 0.1 %
[2025-05-29] MEDS: LACTATED RINGER'S 1,650 ML IV ONE (08:25)
[2025-05-29] MEDS: VANCOMYCIN 1GM/200ML PM 200 ML IV ONE (08:25)
[2025-05-29 08:32] LABS: Albumin 4.7 g/dL (3.2-4.8); Alkaline Phosphatase 78 U/L (46-116); Anion Gap 10 (5-15); Bilirubin, Total 0.6 mg/dL (0.2-1.0); Chloride 103 mmol/L (98-107); Glucose 88 mg/dL (74-106); Potassium 3.9 mmol/L (3.5-5.1); Total Protein 7.6 g/dL (5.7-8.2)
[2025-05-29 08:33] LABS: Alanine Aminotransferase 45 U/L (7-40); BUN/Creatinine Ratio 6.6 (10.0-20.0); Blood Urea Nitrogen < 5 mg/dL (9-23); Calcium 9.8 mg/dL (8.7-10.4); Carbon Dioxide 22 mmol/L (20-31); Sodium 135 mmol/L (136-145)
[2025-05-29 08:42] LABS: INR 1.03 (0.9-1.15); Partial Thromboplastin Time 27.5 SEC (24.5-34.5); Prothrombin Time 10.9 sec (9.3-11.8)
[2025-05-29 09:00] VITALS: PULSE 85; RESP 19; O2SAT 97
[2025-05-29] MEDS: CEFEPIME 1GM/ 50ML 50 ML IV ONE (09:09)
[2025-05-29 09:18] LABS: Urine Protein, UAD Negative (Negative)
[2025-05-29] MEDS: ACETAMINOPHEN 325 MG TAB PO ONE (10:04)
[2025-05-29 10:07] LABS: COVID19 ANTIGEN SOFIA FIA NEGATIVE (NEGATIVE)
--- NOTE | 2025-05-29 10:09 | ECG ---
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
[2025-05-29] MEDS ORDERED: LEVO500T91 PO (12:22)
[2025-05-29] MEDS: CEFEPIME 1GM/ 50ML 50 ML IV SCH (12:22)
--- NOTE | 2025-05-29 12:22 | DVHDS2 ---
New Physician D'charge PN Admitting Diagnosis Admitting Diagnosis flu like sx Discharge Diagnosis viral prodrome Operations or Procedures none Reason(s) For Hospitalization Surgery Hospital Course 64 F who comes to ER with flu like symptoms. She has been complaining of fever and associated nausea and CP. She took tylenol for the fever at home and states she has been feeling weak. On arrival to ER her CBC showed a mildly elevated WBC of 12k and chem panel was essentially unremarkable with preserved renal function. She had troponin that were negative x 3. Her lactic acid was nml at 1.5. She has evidence of UTI with 1+ LE on UA. She had influenza A/B and covid swabs done and they were negative. She was never tachycardic or hypotensive and hemodynamically her vitals signs are stable with SBP in the 120s. SHe was given IV fluids and IV cefepime in the ER. She remains stable and will be discharged home with PO levaquin x 7 days for UTI. [facility] to arrange for nursing and PCP follow up, Discussed with ER provider and all parties in agreement with plan, Patient to be dc home with the aforementioned outpt care and follow up. Treatment Plan Discharge Condition of Discharge Good Disposition Home Discharge Instructions Diet: Consistent carbohydrate, Cardiac 2g Na,low cholest Activity: No Restrictions, As Tolerated Medications: see med sheet Follow Up Care Discharge Statement: "Patient was advised to return to the ER or call 911 if any headaches, dizziness, shortness of breath, chest pain, abdominal pain, bleeding, fevers, or worsening of medical condition. Patient was counseled about treatment plan, medications, possible side effects, patientverbalized understanding. All questions were answered to the best of my ability. This discharge took greater then 30 minutes in planning, reviewing documentation, counseling the patient, and discussing with other team members." DESHAUN VITALE MD May 29, 2025 12:22
[2025-05-29 13:05] VITALS: PULSE 64; RESP 18; O2SAT 98
[2025-05-29 15:23] VITALS: BP 120/51; PULSE 66; RESP 13; TEMP 98.3; O2SAT 99
== END 2025-05-29 15:26 | disposition home or self-care (01) ==
LOC: ER 07:04 → EDSEX 07:04 → EDBD 07:04 → ER 15:26
DX: N39.0 Urinary tract infection, site not specified (principal); R50.9 Fever, unspecified; R07.89 Other chest pain; I10 Essential (primary) hypertension; E78.5 Hyperlipidemia, unspecified; J45.909 Unspecified asthma, uncomplicated; Z79.899 Other long term (current) drug therapy; Z90.710 Acquired absence of both cervix and uterus; Z90.49 Acquired absence of other specified parts of digestive tract; Z88.1 Allergy status to other antibiotic agents; Z87.440 Personal history of urinary (tract) infections; Z86.73 Personal history of transient ischemic attack (TIA), and cerebral infarction without residual deficits; Z86.718 Personal history of other venous thrombosis and embolism; Z20.822 Contact with and (suspected) exposure to COVID-19
CPT/HCPCS: 36415; 71045; 80053; 81001; 83605; 84484; 85025; 85610; 85730; 87040; 87426; 87804; 93005; 96361; 96365; 96366; 96368; 99285; J0692; J3373